=== PATIENT | male | born 1955 ===

== ENCOUNTER 2022-07-09 16:01 | Emergency (ER) | payer OTHER ==
[~2022-07-09] VITALS: Ht 172 cm; Wt 81.0 kg
--- NOTE | 2022-07-09 16:22 | ED Chest Pain ---
General Chief Complaint: Chest Pain Stated Complaint: ABDOMINAL PAIN Source: patient Exam Limitations: no limitations History of Present Illness Date Seen by Provider: Jul 09, 2022 Time Seen by Provider: 15:59 Allergies and Home Medications Allergies Coded Allergies: No Known Drug Allergies (Unverified , 07/09/22) Past Nsqqitr-Rvklgo-Mizhpu Hx Patient Social History Tobacco Use?: No Smoking Status: Never a Smoker Substance use?: No Alcohol Use?: No Pt feels they are or have been: No Past Medical History Surgery/Hospitalization HX: sx: appy, cabg pmh: cardiac disease, Physical Exam Vital Signs Vital Signs - First Documented 07/09/22 16:05 Temp 36.6 Pulse 98 Resp 20 B/P (MAP) 182/102 (128) Pulse Ox 93 O2 Delivery Room Air Capillary Refill : Height, Weight, BMI Height: '" Weight: lbs. oz. kg; BMI Method: Progress/Results/Core Measures Results/Orders Lab Results Laboratory Tests Test 07/09/22 16:05 Range/Units White Blood Count 11.3 H 4.3-11.0 10^3/uL Red Blood Count 5.04 4.30-5.52 10^6/uL Hemoglobin 15.2 13.3-17.7 g/dL Hematocrit 43 40-54 % Mean Corpuscular Volume 85 80-99 fL Mean Corpuscular Hemoglobin 30 25-34 pg Mean Corpuscular Hemoglobin Concent 35 32-36 g/dL Red Cell Distribution Width 13.1 10.0-14.5 % Platelet Count 357 130-400 10^3/uL Mean Platelet Volume 9.6 9.0-12.2 fL Immature Granulocyte % (Auto) 0 % Neutrophils (%) (Auto) 65 42-75 % Lymphocytes (%) (Auto) 25 12-44 % Monocytes (%) (Auto) 9 0-12 % Eosinophils (%) (Auto) 1 0-10 % Basophils (%) (Auto) 0 0-10 % Neutrophils # (Auto) 7.3 1.8-7.8 10^3/uL Lymphocytes # (Auto) 2.8 1.0-4.0 10^3/uL Monocytes # (Auto) 1.0 0.0-1.0 10^3/uL Eosinophils # (Auto) 0.1 0.0-0.3 10^3/uL Basophils # (Auto) 0.0 0.0-0.1 10^3/uL Immature Granulocyte # (Auto) 0.0 0.0-0.1 10^3/uL Prothrombin Time 13.5 12.2-14.7 SEC INR Comment 1.0 0.8-1.4 Activated Partial Thromboplast Time 36 H 24-35 SEC Sodium Level 145 135-145 MMOL/L Potassium Level 3.3 L 3.6-5.0 MMOL/L Chloride Level 104 98-107 MMOL/L Carbon Dioxide Level 18 L 21-32 MMOL/L Anion Gap 23 H 5-14 MMOL/L Blood Urea Nitrogen 37 H 7-18 MG/DL Creatinine 1.26 0.60-1.30 MG/DL Estimat Glomerular Filtration Rate 63 BUN/Creatinine Ratio 29 Glucose Level 118 H 70-105 MG/DL Calcium Level 10.0 8.5-10.1 MG/DL Corrected Calcium 8.5-10.1 MG/DL Magnesium Level 2.3 1.6-2.4 MG/DL Total Bilirubin 1.6 H 0.1-1.0 MG/DL Aspartate Amino Transf (AST/SGOT) 37 H 5-34 U/L Alanine Aminotransferase (ALT/SGPT) 38 0-55 U/L Alkaline Phosphatase 53 40-136 U/L Total Creatine Kinase 521 H 30-200 U/L Creatine Kinase MB 15.6 *H <6.6 NG/ML Myoglobin 301.9 H 10.0-92.0 NG/ML Troponin I < 0.028 <0.028 NG/ML Total Protein 8.3 H 6.4-8.2 GM/DL Albumin 4.9 H 3.2-4.5 GM/DL My Orders Orders - [employer] Cbc With Automated Diff (07/09/22 16:21) Magnesium (07/09/22 16:21) Chest 1 View, Ap/Pa Only (07/09/22 16:21) Comprehensive Metabolic Panel (07/09/22 16:21) Myoglobin Serum (07/09/22 16:21) Protime With Inr (07/09/22 16:21) Partial Thromboplastin Time (07/09/22 16:21) O2 (07/09/22 16:21) Monitor-Rhythm Ecg Trace Only (07/09/22 16:21) Ed Iv/Invasive Line Start (07/09/22 16:21) Creatine Kinase (07/09/22 16:21) Creatine Kinase Mb (07/09/22 16:21) Troponin I [place] (07/09/22 16:21) Ct Abdomen/Pelvis W (07/09/22 16:21) Ns Iv 1000 Ml (Sodium Chloride 0.9%) (07/09/22 17:00) Ns Iv 1000 Ml (Sodium Chloride 0.9%) (07/09/22 18:30) Vital Signs/I&O 07/09/22 16:05 Temp 36.6 Pulse 98 Resp 20 B/P (MAP) 182/102 (128) Pulse Ox 93 O2 Delivery Room Air Departure Impression Primary Impression: Chronic abdominal pain Additional Impression: Dehydration Disposition: 01 HOME, SELF-CARE Condition: Improved Departure-Patient Inst. Decision time for Depature: 18:40 Patient Instructions: Dehydration, Adult ED Add. Discharge Instructions: Plan: 1. Make sure you are taking plenty of water to keep your urine pale yellow and urinating. 2. Make sure you take frequent breaks when working out in the heat to prevent heat exhaustion. 3. Follow-up with your primary care provider to renew medications. 4. Return to the ER for any new, concerning or worsening symptoms. All discharge instructions reviewed with patient and/or family. Voiced understanding. [employer] Jul 09, 2022 16:22
[2022-07-09 16:31] LABS: ALBUMIN 4.9 GM/DL (3.2-4.5); CHLORIDE 104 MMOL/L (98-107); POTASSIUM 3.3 MMOL/L (3.6-5.0); SODIUM 145 MMOL/L (135-145)
[2022-07-09 16:32] LABS: BASOPHILS % (AUTO) 0 % (0-10); EOSINOPHILS # (AUTO) 0.1 10^3/uL (0.0-0.3); EOSINOPHILS % (AUTO) 1 % (0-10); HEMATOCRIT 43 % (40-54); HEMOGLOBIN 15.2 g/dL (13.3-17.7); LYMPHOCYTES # (AUTO) 2.8 10^3/uL (1.0-4.0); LYMPHOCYTES % (AUTO) 25 % (12-44); MEAN CORPUSCULAR HEMOGLOBIN 30 pg (25-34); MEAN CORPUSCULAR HGB CONC 35 g/dL (32-36); MEAN CORPUSCULAR VOLUME 85 fL (80-99); MEAN PLATELET VOLUME 9.6 fL (9.0-12.2); MONOCYTES % (AUTO) 9 % (0-12); NEUTROPHILS # (AUTO) 7.3 10^3/uL (1.8-7.8); NEUTROPHILS % (AUTO) 65 % (42-75); PLATELET COUNT 357 10^3/uL (130-400); WHITE BLOOD COUNT 11.3 10^3/uL (4.3-11.0)
[2022-07-09 16:34] LABS: GLUCOSE 118 MG/DL (70-105); TOTAL PROTEIN 8.3 GM/DL (6.4-8.2)
[2022-07-09 16:35] LABS: CARBON DIOXIDE 18 MMOL/L (21-32)
[2022-07-09 16:36] LABS: BILIRUBIN,TOTAL 1.6 MG/DL (0.1-1.0)
[2022-07-09 16:37] LABS: ALKALINE PHOSPHATASE 53 U/L (40-136); CREATININE SERUM 1.26 MG/DL (0.60-1.30); GFR ESTIMATED 63
[2022-07-09 16:39] LABS: BUN/CREATININE RATIO 29
[2022-07-09 16:40] LABS: ALANINE AMINOTRANSFERASE 38 U/L (0-55); MAGNESIUM 2.3 MG/DL (1.6-2.4)
[2022-07-09 16:41] LABS: CREATINE KINASE 521 U/L (30-200)
[2022-07-09 16:51] LABS: CREATINE KINASE MB 15.6 NG/ML (<6.6)
[2022-07-09 16:56] LABS: PROTHROMBIN TIME PATIENT 13.5 SEC (12.2-14.7)
[2022-07-09] MEDS ORDERED: NS IV 1000 ML 1,000 ML IV SCH ×2 (17:00→18:30)
[2022-07-09] MEDS ORDERED: NS 100 ML (IVPB) BAG IV ONE (17:15)
[2022-07-09] MEDS ORDERED: IOHEXOL 350 MG/ML 100 ML (OMNIPAQUE 350) VIAL IV ONE (17:15)
[2022-07-09] MEDS ORDERED: HOLD METFORMIN - RECEIVED CONTRAST 20 ML VIAL IV SCH (17:15)
--- NOTE | 2022-07-09 17:19 | Diagnostic Imaging Report ---
CHEST 1 VIEW, AP/PA ONLY Indication: Chest pain. Comparison: CT abdomen pelvis performed concurrently. Findings: No focal airspace disease in the visualized lungs. Please note that the posterior lower lobes are poorly evaluated by portable radiography. No pleural effusion or pneumothorax. Normal heart size. Prior sternotomy for CABG. Impression: 1. No acute cardiopulmonary process by portable radiography. Dictated by: Dictated on workstation # [id number]
--- NOTE | 2022-07-09 17:24 | Diagnostic Imaging Report ---
PROCEDURE: CT abdomen and pelvis with contrast. TECHNIQUE: Multiple contiguous axial images were obtained through the abdomen and pelvis after administration of intravenous contrast. Auto Exposure Controls were utilized during the CT exam to meet ALARA standards for radiation dose reduction. All CT scans use one or more of the following dose optimizing techniques: automated exposure control, MA and/or KvP adjustment based on patient size and exam type or iterative reconstruction. INDICATION: Left upper quadrant pain COMPARISON: None FINDINGS: Lung bases are clear. The heart is normal in size. The liver demonstrates a hypoechoic lesion in the left lobe which measures 1.1 cm, consistent with a cyst. No enhancing lesions are seen. The spleen appears normal. The pancreas appears normal. The adrenal glands are normal. The kidneys demonstrate no enhancing lesions or hydronephrosis. There is a simple appearing right renal cyst measuring 4.2 cm. The bowel loops are nondistended without obstruction. There is diverticulosis throughout the distal colon without findings of diverticulitis. The appendix is not seen but no secondary findings of appendicitis are identified. No free fluid or free air is seen. No acute osseous abnormality is identified. There are degenerative changes in the hips and spine, most severe in the right hip. IMPRESSION: 1. No acute abnormality is seen in the abdomen or pelvis. 2. Colonic diverticulosis without diverticulitis. Dictated by: Dictated on workstation # [id number]
[2022-07-09 19:45] VITALS: BP 152/93
== END 2022-07-09 19:45 | disposition home or self-care (01) ==
LOC: ER 16:05
DX: E86.0 Dehydration (principal); G89.29 Other chronic pain; R10.9 Unspecified abdominal pain; Z28.310 Unvaccinated for COVID-19
CPT/HCPCS: 36415; 71045; 74177; 80053; 82550; 82553; 83735; 83874; 84484; 85025; 85610; 85730; 93005; 93041